=== PATIENT | male | born 1935 | race Caucasian/White ===

== ENCOUNTER 2018-04-07 23:15 | Emergency (ER) | payer OTHER ==
[~2018-04-07] VITALS: Ht 175.3 cm; Wt 84.5 kg
[2018-04-07 23:51] LABS: HEMATOCRIT 35.9 % (38.0-50.0); HEMOGLOBIN 12.7 G/DL (12.5-16.6); MCH 34.1 PG (29.0-34.0); MCHC 35.4 G/DL (30.0-36.0); MCV 96.5 FL (86-99); PLATELET COUNT 146 K/uL (156-360); RBC DIS.WIDTH-CV 13.4 % (11.8-14.6); RBC DIS.WIDTH-SD 47.5 % (39-53); RED BLOOD COUNT 3.72 M/uL (4.00-5.50)
[2018-04-07 23:59] LABS: CHLORIDE 104 mEq/L (99-109); POTASSIUM 4.4 mEq/L (3.7-5.4); SODIUM 138 mEq/L (136-147)
[2018-04-08 00:01] LABS: GLUCOSE 158 mg/dL (70-99)
[2018-04-08 00:05] LABS: CREATININE 1.2 mg/dL (0.6-1.3); GFR ESTIMATE (CALCULATED) > 59 mL/min/ (58.99-99999)
[2018-04-08 00:06] LABS: UREA NITROGEN (BUN) 23 mg/dL (9-23)
[2018-04-08 01:30] LABS: APPEARANCE SL.HAZY ((CLEAR)); BILIRUBIN NEGATIVE; BLOOD LARGE; COLOR YELLOW ((YELLOW)); GLUCOSE (STRIP) NEGATIVE; KETONES 20; LEUKOCYTES NEGATIVE; NITRITE NEGATIVE; PROTEIN (STRIP) 100; SPECIFIC GRAVITY 1.019 (1.000-1.030); UROBILINOGEN 0.2 MG/DL (0.2-1.0)
[2018-04-08 01:47] LABS: BACTERIA 1+ /HPF; EPITHELIAL CELLS NONE SEEN /HPF; MUCUS RARE /LPF; RED BLOOD CELLS TNTC /HPF (0-5); UCUL ADDED? YES; WHITE BLOOD CELLS 0-5 /HPF (0-5)
[2018-04-08] MEDS ORDERED: TYLENOL WITH C1 EACH PO (04:57)
[2018-04-08] MEDS ORDERED: MOTRIN600 MG PO (04:57)
[2018-04-08] MEDS ORDERED: FLOMAX0.4 MG PO (04:57)
[2018-04-08] MEDS ORDERED: ZOFRAN ODT4 MG PO (04:59)
[2018-04-08 05:10] VITALS: BP 126/67
== END 2018-04-08 05:32 | disposition home or self-care (01) ==
LOC: EME 23:15
DX: N20.1 Calculus of ureter (principal); E11.9 Type 2 diabetes mellitus without complications; Z87.442 Personal history of urinary calculi; Z88.0 Allergy status to penicillin
CPT/HCPCS: 74176; 80048; 81003; 85027; 87086; J1885; J2405; J7040; J7050

== ENCOUNTER 2018-04-09 11:58 | Emergency (ER) | payer OTHER ==
[~2018-04-09] VITALS: Ht 180.3 cm; Wt 91.1 kg
[~2018-04-09 11:58] MED LIST: FLOMAX0.4 MG PO; MOTRIN600 MG PO; TYLENOL WITH C1 EACH PO; ZOFRAN ODT4 MG PO
[2018-04-09 12:31] LABS: HEMOGLOBIN 12.3 G/DL (12.5-16.6); MCH 34.6 PG (29.0-34.0); MCHC 35.1 G/DL (30.0-36.0); MCV 98.3 FL (86-99); PLATELET COUNT 133 K/uL (156-360); RBC DIS.WIDTH-CV 13.9 % (11.8-14.6); RBC DIS.WIDTH-SD 50.4 % (39-53); RED BLOOD COUNT 3.56 M/uL (4.00-5.50)
[2018-04-09 12:37] LABS: APPEARANCE CLEAR ((CLEAR)); BILIRUBIN NEGATIVE; BLOOD SMALL; COLOR YELLOW ((YELLOW)); GLUCOSE (STRIP) NEGATIVE; KETONES NEGATIVE; LEUKOCYTES TRACE; NITRITE NEGATIVE; PROTEIN (STRIP) 30; UROBILINOGEN 0.2 MG/DL (0.2-1.0)
[2018-04-09 12:40] LABS: BACTERIA NONE SEEN /HPF; EPITHELIAL CELLS RARE /HPF; MUCUS TRACE /LPF; RED BLOOD CELLS 0-5 /HPF (0-5); UCUL ADDED? NO; WHITE BLOOD CELLS 0-5 /HPF (0-5)
[2018-04-09 12:41] LABS: CHLORIDE 104 mEq/L (99-109); POTASSIUM 4.9 mEq/L (3.7-5.4); SODIUM 138 mEq/L (136-147)
[2018-04-09 12:43] LABS: GLUCOSE 144 mg/dL (70-99)
[2018-04-09 12:47] LABS: GFR ESTIMATE (CALCULATED) 39 mL/min/ (58.99-99999)
[2018-04-09 12:48] LABS: CREATININE 1.8 mg/dL (0.6-1.3); UREA NITROGEN (BUN) 29 mg/dL (9-23)
[2018-04-09 15:59] VITALS: BP 139/68
== END 2018-04-09 16:08 | disposition home or self-care (01) ==
LOC: EXP 11:58 → EME 11:58 → EXP 16:08
DX: N20.1 Calculus of ureter (principal); N17.9 Acute kidney failure, unspecified; Z87.442 Personal history of urinary calculi; E11.9 Type 2 diabetes mellitus without complications; Z88.0 Allergy status to penicillin
CPT/HCPCS: 74018; 80048; 81003; 85027; 87086; J1885; J3010; J7030